=== PATIENT | male | born 1950 | race Caucasian/White ===

== ENCOUNTER 2018-08-28 13:52 | Outpatient (REF) | payer MEDICARE, SELFPAY ==
[2018-08-28 22:29] LABS: Anion Gap 8.9 mmol/L (3-11); BUN 20 mg/dL (7-18); CO2 31.1 mmol/L (21.0-32.0); Calcium 9.1 mg/dL (8.5-10.1); Chloride 101 mmol/L (98-107); Glucose 123 mg/dL (70-100); Potassium 4.1 mmol/L (3.5-5.1); Sodium 141 mmol/L (136-145)
[2018-08-30 10:36] LABS: Hepatitis C Ab w Rflx HCV PCR Negative (NEGAT)
== END 2018-08-28 14:12 ==
LOC: NCHCN 13:52
PROVIDERS: PCP Internal Medicine; Visit Provider Internal Medicine
DX: I10 Essential (primary) hypertension (principal); I48.2 Chronic atrial fibrillation; Z79.01 Long term (current) use of anticoagulants; I50.9 Heart failure, unspecified; Z11.59 Encounter for screening for other viral diseases
CPT/HCPCS: 80048; 86803

== ENCOUNTER → 2019-05-03 13:08 | Outpatient (BNVA) | payer MEDICARE, SELFPAY | PROVIDERS: PCP Internal Medicine; Referring Provider Internal Medicine; Visit Provider Physical Therapy Assistant | DX: R69 Illness, unspecified (principal) | CPT/HCPCS: 99213 ==

== ENCOUNTER 2019-05-03 14:16 | Outpatient (CLI) | payer MEDICARE, SELFPAY ==
[2019-05-03 14:44] LABS: Abs Immature Grans 0.02 k/cumm (0.0-0.09); Absolute Basophil Count 0.03 k/cumm (0.0-0.2); Absolute Eosinophil Count 0.18 k/cumm (0.0-0.7); Absolute Lymphocyte Count 2.06 k/cumm (1.2-3.4); Absolute Monocyte Count 0.76 k/cumm (0.11-0.7); Absolute Neutrophil Count 3.88 k/cumm (1.2-6.7); Basophils % 0.4; Eosinophils % 2.6; HCT 45.3 % (40.0-50.0); HGB 15.7 g/dL (13.5-17.5); Immature Grans % 0.3; Lymphocytes % 29.7; Mean Corp. HGB Concentration 34.7 g/dL (32.0-36.0); Mean Corpuscular Hemoglobin 32.6 pg (27.0-33.0); Mean Platelet Volume 10.6 fL (8.0-11.0); Platelet Count 249 x1000/uL (130-400); RBC 4.82 m/cumm (4.50-6.00); RBC Distribution Width 12.4 % (11.8-14.1); White Blood Cell Count 6.93 k/cumm (4.4-10.8)
[2019-05-03 14:55] LABS: CREATININE 0.92 mg/dL (0.70-1.30)
[2019-05-03 15:03] LABS: C-Reactive Protein < 0.05 mg/dL (0.0-0.3)
[2019-05-03 15:34] LABS: ESR 10 mm/hr (1-20)
== END 2019-05-03 14:36 ==
PROVIDERS: Physical Therapy Assistant; PCP Internal Medicine; Visit Provider Surgery
DX: L02.214 Cutaneous abscess of groin (principal)
CPT/HCPCS: 36415; 85652; 97597; 99213; 82565; 85025; 86140; 87070; 87205

== ENCOUNTER 2019-05-09 01:16 | Outpatient (CLI) | payer MEDICARE, SELFPAY ==
--- NOTE | 2019-05-09 10:32 | DI.CT_ITS ---
SYMPTOM/DIAGNOSIS: LT INGUINAL ABSCESS, S/P HERNIA REPAIR, L02.[address]: CT examination of the abdomen and pelvis was performed with oral contrast only. The patient refused IV contrast. Images obtained through the lung bases are unremarkable. Liver and spleen have a normal noncontrast appearance. Gallbladder and bile ducts are CT normal. Adrenals appear unremarkable bilaterally. There appear to be bilateral renal cysts. There are bilateral renal non obstructing calcifications which appear to be mostly vascular. Urinary bladder has a thickened wall raising the possibility of cystitis or chronic bladder outlet obstruction. There is colonic diverticulosis without diverticulitis. There is a right inguinal hernia which contains fat and the appendix. No evidence of appendiceal inflammation at this time. No significant left inguinal hernia is seen. No abscess identified. No evidence of bowel obstruction. Abdominal aorta is of normal diameter. CONCLUSION: Small right inguinal hernia which contains fat and a non inflamed appendix. No inguinal abscess is seen. No left inguinal hernia.
[2019-05-09] MEDS: Omnipaque 350 MG/ML 50 ML BTL IJ (10:36)
[2019-05-09] MEDS: Breeza Beverage 473 ML BTL PO ×2 (10:37)
== END 2019-05-09 01:36 ==
PROVIDERS: PCP Internal Medicine; Visit Provider Physical Therapy Assistant
DX: L02.214 Cutaneous abscess of groin (principal); Z98.890 Other specified postprocedural states; K40.90 Unilateral inguinal hernia, without obstruction or gangrene, not specified as recurrent; K57.30 Diverticulosis of large intestine without perforation or abscess without bleeding
CPT/HCPCS: 74176; Q9967

== ENCOUNTER → 2019-05-17 11:08 | Outpatient (BNVA) | payer MEDICARE, SELFPAY | PROVIDERS: PCP Internal Medicine; Referring Provider Internal Medicine; Visit Provider Physical Therapy Assistant | DX: Z51.89 Encounter for other specified aftercare (principal); I11.0 Hypertensive heart disease with heart failure; I50.9 Heart failure, unspecified | CPT/HCPCS: 99212; 99213 ==

== ENCOUNTER → 2019-05-31 11:04 | Outpatient (BNVA) | payer MEDICARE, SELFPAY | PROVIDERS: PCP Internal Medicine; Referring Provider Internal Medicine; Visit Provider Physical Therapy Assistant | DX: L02.214 Cutaneous abscess of groin (principal); Z51.89 Encounter for other specified aftercare; I10 Essential (primary) hypertension | CPT/HCPCS: 99212; 99213 ==

== ENCOUNTER → 2019-08-08 13:18 | Outpatient (BNVA) | payer MEDICARE, SELFPAY | PROVIDERS: PCP Internal Medicine; Referring Provider Internal Medicine; Visit Provider Surgery | DX: K40.90 Unilateral inguinal hernia, without obstruction or gangrene, not specified as recurrent (principal); I25.5 Ischemic cardiomyopathy; I42.0 Dilated cardiomyopathy; Z87.891 Personal history of nicotine dependence; I48.91 Unspecified atrial fibrillation; Z79.01 Long term (current) use of anticoagulants; N40.0 Benign prostatic hyperplasia without lower urinary tract symptoms; I34.0 Nonrheumatic mitral (valve) insufficiency; I10 Essential (primary) hypertension | CPT/HCPCS: 99213 ==

== ENCOUNTER 2019-08-23 01:41 | Outpatient (CLI) | payer MEDICARE, SELFPAY ==
--- NOTE | 2019-08-23 07:30 | DI.US_ITS ---
APPROVED REPORT EXAM: Comprehensive 2D, Doppler, and color-flow Echocardiogram Patient Location: Out-Patient Demand Generation Manager: Rohini Diaz [facility] ([place]) Rhythm: Atrial Fibrillation Tachycaria Indications: ischemic Cardiomyopathy. k40.90, TIA G45.9, smoker, right inguinal hernia k40.90 Conclusion Left Ventricle : The left ventricle is normal. The posterior wall thickness is mildly increased. The septal thickness is mildly increased. The left ventricular diastolic function is normal. Left ventric ular systolic function is mildly decreased. There is global hypokinesis of the left ventricle. LVEF i s estimated to be 45-50%. Right Ventricle : Right ventricle is dilated. Right ventricle is low normal in function. Atria : Left atrium is severely dilated. Right atrium is severely dilated. Aortic Valve : Aortic valve is thickened but has adequate excursion. Trivial aortic regurgitation. Th ere is no aortic valvular stenosis. Mitral Valve : Mitral valve leaflets are thickened and myxomatous. No evidence of mitral valve stenos is. Moderate to severe mitral regurgitation (RF 39%) Tricuspid Valve : Tricuspid valve leaflets are thickened and myxomatous, but open well. Moderate tric uspid regurgitation. Great Vessels : IVC is normal mildly dilated and collapses >50% with inspiration. RVSP is 29-33 mmHg . Compared to prior echocardiogram dated 08/29/2013, there is no significant change. Wall motion Left Ventricle The left ventricle is normal. Left ventricular systolic function is mildly decreased. The posterior w all thickness is mildly increased. The septal thickness is mildly increased. There is global hypokine sis of the left ventricle. The left ventricular diastolic function is normal. LVEF is estimated to be 45-50%. Right Ventricle Right ventricle is dilated. Right ventricle is low normal in function. Atria Left atrium is severely dilated. Right atrium is severely dilated. Aortic Valve Aortic valve is thickened but has adequate excursion. There is no aortic valvular stenosis. Trivial a ortic regurgitation. Mitral Valve Mitral valve leaflets are thickened and myxomatous. No evidence of mitral valve stenosis. Moderate to severe mitral regurgitation (RF 39%) Tricuspid Valve Tricuspid valve leaflets are thickened and myxomatous, but open well. Moderate tricuspid regurgitatio n. Pulmonic Valve Pulmonic valve leaflets are thickened. Mild to moderate pulmonic regurgitation. Great Vessels The aortic root size is normal. The ascending aorta size is normal. IVC is normal mildly dilated and collapses >50% with inspiration. RVSP is 29-33 mmHg. Pericardium There is no pericardial effusion. 2D Dimensions IVSd 1.30 cm M: 0.6-1.2 LV EDV A2C 100.70 mL PWd 1.15 cm M: 0.6 - 1.2 LV EDV A4C 127.30 mL LVDd 5.00 cm M: 4.2 - 5.8 LA Volume Index A2C 56.85 mL/m2 LVDs 3.65 cm M: 2.5 - 4.0 LA Volume Index A4C 72.57 mL/m2 Aortic Root 3.35 cm M: 3.1 - 3.7 LA Volume Index Biplane 64.91 mL/m2 RA Area A4C 29.92 cm2 LA Area A4C 35.89 cm2 LVOT 2.05 cm (M/F) 1.5-2.5 LA Area A2C 31.44 cm2 Ascending Aorta 3.18 cm M: 2.6 - 3.4 EF AP4 48.31 % LVEF (Teich) 52.58 % EF AP2 40.32 % LVEF (Moreno's) 41.64 % M: 52 - 72 EF BP 41.64 % LV Volume 84.23 mL M: 62 - 150 LV Volume Index 41.49 mL/m2 M: 34 - 74 FS 27.10 % LV Diastology MED E' 0.07 (>0.07 m/s) LV E/e MED 13.95 (<14) LAT E' 0.15 (>0.1 m/s) LV E/e LAT 6.45 (<14) Pulm Vein s 0.19 m/s PV S/D Ratio 0.38 Pulm Vein d 0.50 m/s Aortic Valve LVOT Area 3.40 cm2 LVOT Peak Jacobo. 0.70 m/s LVOT Mean Jacobo. 0.54 m/s LVOT Peak Gr. 2.20 mmHg DIONY Vmax Index 1.07 cm2/m2 LVOT Mean Gr. 1.25 mmHg LVOT VTI 0.10 m DIONY Mean Jacobo. Index 1.09 cm2/m2 AoV Peak Jacobo. 1.17 (0.5-1.3 m/s) AoV Mean Jacobo. 0.82 m/s AO Peak GR. 5.44 mmHg AO Mean GR. 2.94 (<5 mmHg) VTI Ratio 0.67 DIONY (VTI) 2.26 (2.5-4.5 cm2) DIONY (VTI) Index 1.11 cm/m2 Mitral Valve MV E Max Jacobo. 0.96 (0.4-1.3 m/s) MV Decel. Time 115.50 (160-240 msec) MV Regurg Volume 30.47 mL MV PHT 33.51 msec MV RF 38.75 % MVA PHT 6.55 cm2 Pulmonary Valve PV Peak Velocity 0.84 (0.5-1.5 m/s) Tricuspid Valve TR P. Velocity 2.70 m/s TV Regurg Vmax 2.70 m/s RAP Estimate 8.00 mmHg RVSP 37.00 mmHg TR P. Gradient 29.05 mmHg
== END 2019-08-23 02:01 ==
PROVIDERS: PCP Internal Medicine; Visit Provider Surgery
DX: I25.5 Ischemic cardiomyopathy (principal); I48.20 Chronic atrial fibrillation, unspecified; R00.0 Tachycardia, unspecified; I50.1 Left ventricular failure, unspecified; I34.0 Nonrheumatic mitral (valve) insufficiency; I51.7 Cardiomegaly; F17.210 Nicotine dependence, cigarettes, uncomplicated; G45.9 Transient cerebral ischemic attack, unspecified
CPT/HCPCS: 93306

== ENCOUNTER 2019-08-31 16:18 | Outpatient (REF) | payer MEDICARE, SELFPAY ==
[2019-08-31 21:00] LABS: Anion Gap 8.9 mmol/L (3-11); BUN 19 mg/dL (7-18); CO2 27.1 mmol/L (21.0-32.0); Calcium 9.1 mg/dL (8.5-10.1); Chloride 105 mmol/L (98-107); Glucose 98 mg/dL (74-106); Potassium 4.2 mmol/L (3.5-5.1); Sodium 141 mmol/L (136-145)
== END 2019-08-31 16:38 ==
LOC: NCHCN 16:18
PROVIDERS: PCP Internal Medicine; Visit Provider Internal Medicine
DX: I10 Essential (primary) hypertension (principal)
CPT/HCPCS: 80048

== ENCOUNTER 2019-09-10 06:01 | Day surgery (SDC) | payer MEDICARE, SELFPAY ==
--- NOTE | 2019-09-09 17:14 | HPE_ITS ---
Date of service: 09/10/19 Time of Service: 07:30 Assessment and Plan Assessment and plan (1) Ischemic dilated cardiomyopathy: Status: Acute Assessment and plan: Patient Name: STEFAN TONY #: [id number]: CHRISTIN Ordering Provider: Daphne Ennis #: [id number]: REG CLI Primary Care Provider: David Salgado M.D.Date of Exam: 08/23/19Sex: M Admission Date: 08/23/19 : 1950 Age: 69 Exam(s) a US:US echocardiogram APPROVED REPORT EXAM: Comprehensive 2D, Doppler, and color-flow Echocardiogram Patient Location: Out-Patient Metal Baler[facility] Rhythm: Atrial Fibrillation Tachycaria Indications: ischemic Cardiomyopathy. k40.90, TIA G45.9, smoker, right inguinal hernia k40.90 Conclusion Left Ventricle : The left ventricle is normal. The posterior wall thickness is mildly increased. The septal thickness is mildly increased. The left ventricular diastolic function is normal. Left ventricular systolic function is mildly decreased. There is global hypokinesis of the left ventricle. LVEF is estimated to be 45-50%. Right Ventricle : Right ventricle is dilated. Right ventricle is low normal in function. Atria : Left atrium is severely dilated. Right atrium is severely dilated. Aortic Valve : Aortic valve is thickened but has adequate excursion. Trivial aortic regurgitation. There is no aortic valvular stenosis. Mitral Valve : Mitral valve leaflets are thickened and myxomatous. No evidence of mitral valve stenosis. Moderate to severe mitral regurgitation (RF 39%) Tricuspid Valve : Tricuspid valve leaflets are thickened and myxomatous, but open well. Moderate tricuspid regurgitation. Great Vessels : IVC is normal mildly dilated and collapses >50% with inspiration. RVSP is 29-33 mmHg. Compared to prior echocardiogram dated 08/29/2013, there is no significant change. (2) Mitral valve insufficiency: Status: Chronic (3) HTN (hypertension): Status: Chronic (4) Right inguinal hernia: Status: Acute Assessment and plan: Risks of the surgery include but are not limited to: Bleeding/infection/pneumonia/damage to blood vessels or bladder or bowels/blood clots or PE/chronic pain/urinary retention/chronic numbness/reoccurrence/reaction to mesh requiring removal/damage to testicle or sterility/complications of anesthesia. The procedure will be done with abx and under sterile conditions. The pt requires a ride home from surgery and someone to stay with the pt for 24 hrs after anesthesia. No lifting over 5 pounds for 2 weeks after surgery. History of Present Illness Consults Consult date: 09/10/19 Narrative: Pt seen adn examined. inr 1.1. no changes in health status or medications. had physical on 08/31, did review these results. has developed a dry cough. no fever/chills. non productive. no sore throat. no headaches. No CP or SOB. no productive cough. no dysuria. no leg pain or swelling. we are diong the RIght side today. no changes in meds. stable for procedure site is marked reviewed risk adn benefits of procedure. from H&P: pt has a very lg R ing hernia. He wears biking shorts to keep it in place. He is very active. 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 He does occ get SOB and have to sit if he walks far. He says he has a bad heart and had some TIA's. He is on coumadin for TIA. He used to be a heavy tobacco smoker. Now just THC. He used to see cards regularly- but his cards retired. right inguinal 4-6 months heavy lifting reports other (no chronic cough. no straining to urinate. Does have some nocturia and dr); denies constipation, diarrhea or nausea Addenda The pt did have a recent echo w/ EF 45-50% b/l atrial dilation. severe mitral regurg. I did d/w anethesia. they would agree to do the case under spinal. He should be off anti-caog x 1 wk Addendum dictated by Daphne Ennis DO 08/24/19 6817 <Electronically signed by Daphne Ennis DO> 08/24/19 [id number] Transcribed By: Daphne Ennis 08/24/19 5013 Cosigned by Assessment & Plan (1) Hernia: (2) Right inguinal hernia: d/w pt open repiar w/ mesh. He did fine last repair. Prob should do under spinal. Will recheck an echo preOp. will need to be off coumadin. There is a risk of stroke during this period- but it is low. he also has some BPH and could benefit from being on Flomax preOp. I discussed the nature of inguinal hernias with the pt. I discussed the surgery in detail and the complications related to the surgery and the anesthesia. Pt. understands this, all questions were answered to the patient satisfaction and they signed the consent for surgery. Patient was given an educational booklet. Risks of the surgery include but are not limited to: Bleeding/infection/pneumonia/damage to blood vessels or bladder or bowels/blood clots or PE/chronic pain/urinary retention/chronic numbness/reoccurrence/reaction to mesh requiring removal/damage to testicle or sterility/complications of anesthesia. The procedure will be done with abx and under sterile conditions. The pt requires a ride home from surgery and someone to stay with the pt for 24 hrs after anesthesia. No lifting over 5 pounds for 2 weeks after surgery. He was done under local/MAC in 2016 w/ last hernia. Review of Systems All systems reviewed & are unremarkable except as noted in HPI and below [facility] Medical History A-fib (Chronic) Abscess of left groin (Acute) 04/30/19 Per Brigette Wild, [facility], patient wiht left groin abscess that measured 2.5x1.5 with 1cm white top. Afib (Chronic) BPH (benign prostatic hyperplasia) (Chronic) Chronic anticoagulation (Acute) for afib Congestive heart failure (Chronic) Glaucoma (Chronic) History of cardioembolic stroke (Acute) HTN (hypertension) (Chronic) Ischemic dilated cardiomyopathy (Acute) Mitral valve insufficiency (Chronic) Moderate->Severe on his 08/31/19 echo Right inguinal hernia (Acute) TIA (transient ischemic attack) (Acute) Visual field defect (Acute) Social History Smoking/Tobacco Use Status: Former Tobacco Use Alcohol Intake: current Alcohol Intake frequency: holidays/special occasions only Alcohol type: beer and wine Drug use: Daily Substance use type: marijuana Do you feel safe at home: Yes Meds Home Medications and Allergies Home Medications Medication Instructions Recorded Confirmed Type furosemide 20 mg PO DAILY tab-cap 04/18/15 09/10/19 History metoprolol succinate 200 mg PO DAILY tab-cap 04/18/15 09/10/19 History lisinopril 10 mg tablet 10 mg PO HS 05/03/19 09/10/19 History warfarin 6 mg tablet 6 mg PO DAILY tab 05/03/19 09/10/19 History Allergies Allergy/AdvReac Type Severity Reaction Status Date / Time No Known Allergies Allergy Verified 09/10/19 06:27 Exam Const General: cooperative, healthy appearing, comfortable, no acute distress, well developed and well groomed Nutritional Appearance: average body habitus and well nourished Orientation: alert, awake and oriented x3 HENMT Head: normal to inspection, normocephalic and atraumatic Ears: hearing grossly normal bilaterally and external ears normal General nose exam: external nose normal Face and sinus: normal facial exam and sinuses nontender Mouth: oral mucosae normal, lip normal, tongue normal and moist mucous membranes Teeth and gingiva: dentition normal Eyes General: appearance normal, both eyes and all related structures Conjunctivae: conjunctivae normal Sclera: sclerae normal Pupils: PERRL Neck Neck: normal visual inspection and full ROM Chest Chest: normal inspection of the chest Resp Effort & Inspection: normal respiratory effort, able to speak in complete sentences, no cough, no nasal flaring, not tachypneic and no use of accessory muscles Auscultation: clear to auscultation bilaterally, no rales, no rhonchi and no wheezes Cardio Jugular venous pressure: no JVD Rate: regular rate Rhythm: regular rhythm GI Inspection: normal to inspection, no edema and non-distended Palpation: soft, no masses, nontender and No ascites Auscultation: normal bowel sounds Other: lg right ing hernia Skin General skin exam: no rashes or lesions noted Trauma: no lacerations or abrasions Neuro General: alert, oriented x3, oriented, gait normal, moves all extremities, no focal motor deficits and CN's II-XI intact bilaterally Cognition: normal cognition Speech: speech normal Gait: normal gait Motor: muscle tone normal throughout Extrem General: normal to inspection, full ROM and no clubbing, cyanosis or edema Psych Appearance: grossly normal and well kempt Mental Status: mental status grossly normal Speech and Movement: speech and movement normal Affect: normal affect
[2019-09-10] VITALS (7 sets, daily range): BP systolic 96–147; BP diastolic 70–100; PULSE 81–103; RESP 16–26; TEMP 36.3–36.6; O2SAT 97–100
[2019-09-10] MEDS: Lactated Ringers 1,000 ML 80 ML IV (06:58)
[2019-09-10] MEDS: Acetaminophen 500 MG TAB 1000 MG PO (07:00)
[2019-09-10] MEDS: Gabapentin 300 MG CAP PO (07:00)
[2019-09-10 07:12] LABS: INR 1.1 (0.9-1.1); Prothrombin Time 10.7 sec (9.3-11.0)
[2019-09-10] MEDS: Bupivacaine 0.25% Pres-Free 30 ML VIAL (08:00)
[2019-09-10] MEDS: ceFAZolin 2 GM/50 ML BAG IVPB (08:05)
[2019-09-10] MEDS: Bupivacaine LIPOSOME/PF 133 MG/10 ML VIAL IJ ×2 (08:45→08:51)
--- NOTE | 2019-09-10 09:09 | ROE_ITS ---
Date of service: 09/10/19 Time of Service: 09:09 Operative Note Operative Note DATE OF PROCEDURE: 09/10/19 PRE-OP DIAGNOSIS: right inguinal hernia POST-OP DIAGNOSIS: other (right direct inguinal hernia and lg cord lipoma (3)) PROCEDURE: open repair w/ mesh SURGEON: Daphne Guzman RETAIL STORE ASSISTANT: Lisa Ferrera ANESTHESIA: MAC, local and spinal ESTIMATED BLOOD LOSS: 5 PATHOLOGY: none sent Patient was transported to: same day Implants: mesh- se Rn's notes Indications: pain Procedure Description: PREOPERATIVE DIAGNOSIS: Right inguinal hernia. POSTOPERATIVE DIAGNOSIS: Large right direct inguinal hernia. PROCEDURE: Right open ingiunal hernia repair with/mesh, direct. SURGEON: Daphne Guzman, ANESTHESIA: General. ESTIMATED BLOOD LOSS: Less than 5 mL. COMPLICATIONS: The patient tolerated the procedure well without complications. INDICATIONS: regarding symptomatic right inguinal hernia that has failed outpatient conservative medical management and he is here today for repair. Informed consent was obtained, explaining risks and benefits of the procedure including but not limited to bleeding, infection, pneumonia, blood clots, chronic pain, chronic numbness, damage to testicle resulting in removal, recurrence, reaction to Mesh necessitating removal, and other unforetold complications and complications of anesthesia. The patient is marked in preop. DESCRIPTION OF PROCEDURE: was brought to the operative room suite. Anesthesia was administered per the Department of Anesthesia. The patient was prepped and draped in the usual sterile fashion using ChloraPrep scrub solution. Pause for the cause was done. He did receive preop IV antibiotics, 30 mL of 1% buffered lidocaine was used for local anesthetization. A #12 blade was used to make an incision over the external ring. Electrocautery used to provide hemostasis and dissect down to the fascia. The fascia was pretty much obliterated and there was nothing to open. The cord is elevated. The nerve was not identified. There are two very large cord lipomas. These are dissected off and cautery is used to provide hemostasis. A Sadie drain was placed around the cord to assist in mobilization. The cord was explored. There was is advised sac adhered to the cord. This is teased off the cord using a combination of blunt dissection and electrocautery to provide hemostasis. Is dissected free from the cord and inverted and passed up through the internal ring into the abdomen. A extra- large mesh was then inserted and oversewn using 2-0 Vicryl. The sac is elevavated and inverted. The patch was then placed on the floor and sewn in using 2-0 Vicryl sewn into the pubic tubercle and the shelving portions of the inguinal ligament. There was really no external oblique to really reapproximate. Some is identified and dissected off and brought around the very superior portion of the cord and oversewn again with 2-0 Vicryl. The wound was copiously irrigated. There was no bleeding noted. The drain was placed. All structures are returned to normal anatomical position. Deep tissue was approximated with 3-0 Vicryl and skin was approximated with 4-0 Monocryl in a running subcuticular fashion. Steri tapes and sterile dressings are applied. The patient tolerated the procedure without complications to recovery in stable condition. DAPHNE GUZMAN, DO
--- NOTE | 2019-09-10 09:13 | W.PM.DSUDISC ---
Discharge Plan Disposition Patient Disposition: HOME Condition: Good Discharge Details Reason For Visit: right inguinal hernia reapir Attending Provider: Daphne Ennis Primary Care Provider: David Salgado Home Meds and New Rx's Prescriptions: New oxycodone 5 mg tablet 5 mg PO Q4H PRN (Reason: pain) Qty: 10 RF: 0 bisacodyl [Dulcolax (bisacodyl)] 5 mg tablet,delayed release (DR/EC) 5 mg PO QD-TID 21 Days Qty: 50 RF: 0 Continued lisinopril 10 mg tablet 10 mg PO HS RF: 0 metoprolol succinate 200 MG tablet extended release 24 hr 200 mg PO DAILY RF: 0 furosemide 20 MG tablet 20 mg PO DAILY RF: 0 Discontinued warfarin 6 mg tablet 6 mg PO DAILY RF: 0 Discharge Instructions Additional Instructions: Dr. Ennis HERNIA REPAIR ? POSTOPERATIVE INSTRUCTIONS ? Laparoscopic mesh surgery for hernia repair allows the patient to return to normal activities at an early date. Patients who have this type of surgery can usually be expected to return to work within two weeks and have minimal amounts of discomfort. ? ACTIVITY: The day of surgery should be spent resting. However, you can be up for short periods of time, I.E., going to the bathroom or kitchen. Avoid lifting or straining. On the day following surgery, you can be up and about as desired. ? LIFTING: Restrict your lifting to no more than five (5) pounds for the first week following surgery. ? DIET: There are no dietary restrictions following surgery. However, you may want to start with small amounts of liquids to avoid nausea the day of surgery. ? INCISION CARE: You will notice strips of tape covering the wound ? DO NOT REMOVE THESE STRIPS - they help the wound to heal. After 24 hours you may shower. The dressing may be replaced for comfort, but is not necessary. An ice bag may be applied to the incision for 72 hours following surgery. ? SIGNS OF INFECTION: It is not unusual to have some black and blue discoloration of the skin around the incision, but also scrotum and penis. It will slowly disappear. If you have any increased redness, drainage, fever (above 100 degrees), please contact your doctor for an examination. ? DISCOMFORT: You may expect to have some mild discomfort at the incision sight. If severe pain develops you should contact your doctor for further instructions. ? URINATION: Patients who have surgery occasionally have problems urinating. If you experience problems and are not able to urinate within 6 hours following your surgery, please call your doctor immediately or go to your nearest Emergency Room for evaluation. ? DRIVING: NO driving for five (5) days after surgery ? MEDICATIONS: Alternate Tylenol 1000mg by mouth every 8hours and Ibuprofen 600mg every 6hours. Take the Tylenol and ibuprofen continuously for the first 72hrs- not just when you have pain. Use the oxycodone for severe breakthrough pain. Use ice 20 minutes off/on continuously for the first 72hours. If you are taking narcotic pain medication, follow the instructions on the label and do not drive. Pain medications can make you very constipated. Make sure you are moving your bowels daily. If not, take Dulcolax, Miralax, milk of magnesia or magnesium citrate. ? REPORT: Unusual swelling, severe pain, unresolved nausea, signs of infection, or difficulty in urination to your surgeon. Follow up in clinic with Dr. Ennis in 1-2 weeks. Please call for appointment: [phone] Do not resume coumadin at this time. Will resume after your first postOp appt Discharge Orders Discharge Orders: Discharge Order (Routine); Ordered 09/10/19 Ordered By: Daphne Ennis DS: Diagnosis Discharge Diagnosis (1) Ischemic dilated cardiomyopathy: Status: Acute (2) Mitral valve insufficiency: Status: Chronic (3) HTN (hypertension): Status: Chronic (4) Right inguinal hernia: Status: Acute
[2019-09-10] MEDS: Tamsulosin 0.4 MG CAPCR PO (10:03)
== END 2019-09-10 11:45 | disposition home or self-care (01) ==
PROVIDERS: Nurse Anesthetist, Certified Registered; PCP Internal Medicine; Visit Provider Surgery
PROC: (CPT 49505; principal; 2019-09-10 07:30)
DX: K40.90 Unilateral inguinal hernia, without obstruction or gangrene, not specified as recurrent (principal); I10 Essential (primary) hypertension; G89.18 Other acute postprocedural pain
CPT/HCPCS: 49505; 36415; 76942; NC; 85610; C1781; J0690; J2250; J2405

== ENCOUNTER → 2019-09-21 12:37 | Outpatient (BNVA) | payer MEDICARE, SELFPAY | PROVIDERS: PCP Internal Medicine; Referring Provider Internal Medicine; Visit Provider Surgery | DX: Z48.815 Encounter for surgical aftercare following surgery on the digestive system (principal); K40.90 Unilateral inguinal hernia, without obstruction or gangrene, not specified as recurrent ==

== ENCOUNTER → 2019-10-05 09:25 | Outpatient (BNVA) | payer MEDICARE, SELFPAY | PROVIDERS: PCP Internal Medicine; Referring Provider Internal Medicine; Visit Provider Surgery | DX: K40.90 Unilateral inguinal hernia, without obstruction or gangrene, not specified as recurrent (principal) ==

== ENCOUNTER → 2020-04-09 14:23 | Outpatient (BNVA) | payer OTHER, SELFPAY | PROVIDERS: PCP Internal Medicine; Referring Provider Internal Medicine; Visit Provider Surgery | DX: T81.89XA Other complications of procedures, not elsewhere classified, initial encounter (principal); Z51.89 Encounter for other specified aftercare | CPT/HCPCS: 99211; 99212 ==

== ENCOUNTER 2020-09-02 17:36 | Outpatient (REF) | payer OTHER, SELFPAY ==
[2020-09-02 21:40] LABS: Anion Gap 7.7 mmol/L (3-11); BUN 22 mg/dL (7-18); CO2 27.3 mmol/L (21.0-32.0); CREATININE 0.93 mg/dL (0.70-1.30); Calcium 9.2 mg/dL (8.5-10.1); Chloride 105 mmol/L (98-107); Glucose 131 mg/dL (74-106); Potassium 4.1 mmol/L (3.5-5.1); Sodium 140 mmol/L (136-145)
== END 2020-09-02 17:56 ==
LOC: NCHCN 17:36
PROVIDERS: PCP Internal Medicine; Visit Provider Internal Medicine
DX: I11.0 Hypertensive heart disease with heart failure (principal); I48.21 Permanent atrial fibrillation; I50.9 Heart failure, unspecified; N40.0 Benign prostatic hyperplasia without lower urinary tract symptoms
CPT/HCPCS: 80048; 84153

== ENCOUNTER 2021-09-04 14:53 | Outpatient (REF) | payer OTHER, SELFPAY ==
[2021-09-04 14:48] LABS: HCT 45.8 % (40.0-50.0); HGB 15.2 g/dL (13.5-17.5); MCH 32.3 pg (27.0-33.0); MCHC 33.2 % (32.0-36.0); MCV 97.2 fL (80-95); MPV 11.9 fL (8.0-11.0); Platelet Count 236 10^3/uL (130-400); RBC 4.71 10^6/uL (4.36-5.78); RDW 11.9 % (11.8-14.1); RDW-SD 43.6 fL; WBC 7.47 10^3/uL (4.4-10.8)
[2021-09-04 14:53] LABS: Anion Gap 3.1 mmol/L (3-11); BUN 14 mg/dL (7-18); CO2 32.9 mmol/L (21.0-32.0); CREATININE 0.9 mg/dL (0.70-1.30); Calcium 9.5 mg/dL (8.5-10.1); Chloride 103 mmol/L (98-107); Glucose 102 mg/dL (74-106); Potassium 4.5 mmol/L (3.5-5.1); Sodium 139 mmol/L (136-145)
[2021-09-04 15:07] LABS: Hemoglobin A1C 5.8 % (<5.7)
== END 2021-09-04 14:54 | disposition home or self-care (01) ==
LOC: NCHCN 14:53
PROVIDERS: PCP Internal Medicine; Visit Provider Family Medicine
DX: I10 Essential (primary) hypertension (principal); R63.4 Abnormal weight loss; R73.09 Other abnormal glucose; I50.9 Heart failure, unspecified
CPT/HCPCS: 80048; 85027; 83036

== ENCOUNTER 2022-08-30 13:22 | Outpatient (REF) | payer MEDICARE, SELFPAY ==
[2022-08-30 15:00] LABS: HCT 43.9 % (40.0-50.0); HGB 14.8 g/dL (13.5-17.5); MCH 32.4 pg (27.0-33.0); MCHC 33.7 % (32.0-36.0); MCV 96 fL (80-95); MPV 11.4 fL (8.0-11.0); Platelet Count 270 10^3/uL (130-400); RBC 4.57 10^6/uL (4.36-5.78); RDW-SD 42.9 fL; WBC 7.13 10^3/uL (4.4-10.8)
[2022-08-30 15:18] LABS: ALT 25 U/L (16-63); AST 18 U/L (15-37); Alkaline Phosphatase 68 U/L (46-116); Anion Gap 6.1 mmol/L (3-11); BUN 19 mg/dL (7-18); Bilirubin, Total 0.7 mg/dL (0.2-1.0); CO2 31.9 mmol/L (21.0-32.0); CREATININE 0.9 mg/dL (0.70-1.30); Calcium 9.5 mg/dL (8.5-10.1); Chloride 102 mmol/L (98-107); Estimated GFR 90.18 (mL/min/1.73m2); Glucose 114 mg/dL (74-106); Potassium 3.8 mmol/L (3.5-5.1); Sodium 140 mmol/L (136-145); Total Protein 7.8 g/dL (6.4-8.2)
== END 2022-08-30 13:23 | disposition home or self-care (01) ==
LOC: NCHCN 13:22
PROVIDERS: PCP Internal Medicine; Visit Provider Family Medicine
DX: I10 Essential (primary) hypertension (principal); I50.9 Heart failure, unspecified; I48.21 Permanent atrial fibrillation; Z79.01 Long term (current) use of anticoagulants
CPT/HCPCS: 80053; 85027; 85610

== ENCOUNTER 2022-10-27 02:49 | Outpatient (CLI) | payer MEDICARE, SELFPAY ==
--- NOTE | 2022-10-27 10:30 | DI.US_ITS ---
APPROVED REPORT EXAM: Comprehensive 2D, Doppler, and color-flow Echocardiogram Patient Location: Out-Patient Industrial Relations Officer: Chelsey Bach RDCS (AE) Indications: Congestive heart failure Other Information Study Quality: Adequate Conclusion Normal left ventricular wall thickness and chamber size. Estimated systolic function is mildly reduc ed with an EF of 45 to 50%. There is an apical wall motion abnormality Borderline dilated right ventricle The left atrium is severely dilated. The right atrium is moderately dilated Trileaflet aortic valve with trace regurgitation Normal mitral valve with mild to moderate regurgitation Tricuspid valve with moderate to severe eccentric regurgitation. Estimated right ventricular systoli c pressure is 39 mmHg Patient was in atrial fibrillation throughout the study, controlled rate Wall motion Left Ventricle The left ventricle is normal size. Left ventricular systolic function is mildly reduced. There is nor mal left ventricular wall thickness. There is an apical wall motion abnormality There is no ventricul ar septal defect visualized. LVEF is 45-50% Right Ventricle Right ventricle is borderline dilated. Right ventricular systolic function is grossly normal. The RVS P is 39.0_ mmHg. Atria Left atrium is severely dilated. Right atrium is moderately dilated. The interatrial septum is intact with no evidence for an atrial septal defect. Aortic Valve The aortic valve is normal in structure. Aortic valve is trileaflet. There is no aortic valvular sten osis. Trace aortic regurgitation. Mitral Valve The mitral valve is normal in structure. No evidence of mitral valve stenosis. Mild to moderate liz l regurgitation. Mitral regurgitation jet is eccentrically directed. Tricuspid Valve The tricuspid valve is normal in structure. There is no tricuspid valve stenosis. Moderate to severe tricuspid regurgitation. Tricuspid regurgitation jet is eccentrically directed. Pulmonic Valve The pulmonary valve is normal in structure. There is no pulmonic valvular stenosis. Mild pulmonic reg urgitation. Great Vessels The aortic root is normal in size. The ascending aorta is normal in size. Aortic arch is not well vis ualized. IVC is normal in size and collapses >50% with inspiration. Pericardium There is no pericardial effusion. 2D Dimensions IVSD d PLAX 1.12 cm M: 0.6-1.2 LV Vol A2C d MOD 112.0 mL LVPW d PLAX 1.13 cm M: 0.6 - 1.2 LV Vol A4C d MOD 139.4 mL LVID d PLAX 4.97 cm M: 4.2 - 5.8 LA vol/ BSA A2C s A-L 70.8 mL/m2 LVDs 3.75 cm M: 2.5 - 4.0 LA vol/ BSA A4C s A-L 91.3 mL/m2 Ao Root d 3.02 cm M: 3.1 - 3.7 LA Vol/ BSA Biplane s A-L 82.6 mL/m2 RA Area A4C 28.17 cm2 LA Area A4C s MOD 40.68 cm2 RA Vol/ BSA A4C s A-L 53.1 mL/m2 LA Area A2C s MOD 34.88 cm2 Ao Asc Diam d 3.18 cm M: 2.6 - 3.4 LV EF A4C MOD 51.0 % LV EF Teichholz 46.8 % LV EF A2C MOD 51.8 % LVEF (Moreno's) 51.39 % M: 52 - 72 LV EF Biplane MOD 51.4 % LV Volume 97.22 mL M: 62 - 150 SV 66.21 mL LV Volume Index 49.60 mL/m2 M: 34 - 74 SV Index 33.73 mL/m2 LV Vol Biplane MOD 128.8 mL FS 23.50 % M-Mode TAPSE 1.48 cm (M/F) >1.7 LV Diastology MV E' medial 0.076 (>0.07 m/s) MV E Vmax 0.72 (0.4-1.3 m/s) LV E/e MED 9.45 (<14) MV E' lateral 0.169 (>0.1 m/s) LV E/e LAT 4.25 (<14) MV E/E' medial 9.47 MV E/E' lateral 4.27 Aortic Valve LVOT Area 3.38 cm2 AoV Area Vmax 2.46 cm2 LVOT Vmax 0.78 m/s AoV Area/ BSA (Vmax) 1.25 cm2/m2 LVOT Mean Jacobo. 0.53 m/s DIONY Mean Jacobo. 2.12 cm2 LVOT Peak Grad 2.4 mmHg DIONY Mean Jacobo. Index 1.08 cm2/m2 LVOT Mean Grad 1.3 mmHg AR DT 3185 msec LVOT VTI 0.134 m AR PHT 924 msec LVOT Diam s 2.05 cm AoV Vmax 1.08 m/s Velocity Ratio 0.72 AoV Mean Jacobo. 0.84 m/s AoV Peak Grad 4.6 mmHg LVOT SV 45.26 mL AoV Mean Grad 3.0 mmHg AoV VTI 0.231 m AoV Area VTI 1.96 cm2 AoV Area/ BSA (VTI) 1.00 cm/m2 Mitral Valve MV DT 271 (160-240 msec) MR Vmax 4.45 m/s MV PHT 79 msec MR VTI 1.481 m MV Area PHT 2.80 cm2 MR Peak Grad 79.2 mmHg MV VTI 0.142 m MR Mean Grad 58.5 mmHg MV VTI Annulus 0.152 m MV Area VTI 3.41 (4.0-6.0 cm2) Pulmonary Valve PV Vmax 0.83 (0.5-1.5 m/s) RVOT Peak Gr. 0.98 mmHg PV Peak Grad 2.8 mmHg RVOT Mean Gr. 0.50 mmHg PV Mean Grad 1.4 mmHg RVOT VTI 0.096 m PV VTI 0.130 m RVOT Vmax 0.50 m/s Tricuspid Valve TR Peak Grad 35.9 mmHg TR Vmax 3.00 m/s RA Pressure 3.00 mmHg RVSP (TR) 39.0 mmHg
== END 2022-10-27 03:09 ==
LOC: DI 02:50
PROVIDERS: PCP Internal Medicine; Visit Provider Family Medicine
DX: I50.9 Heart failure, unspecified (principal)
CPT/HCPCS: 93306

== ENCOUNTER 2023-03-03 15:58 | Outpatient (REF) | payer MEDICARE, SELFPAY ==
[2023-03-03 14:51] LABS: INR 2.9 (0.9-1.1); Prothrombin Time 29.7 sec (9.3-11.0)
[2023-03-03 15:10] LABS: Anion Gap 10.4 mmol/L (3-11); BUN 16 mg/dL (7-18); CO2 30.6 mmol/L (21.0-32.0); CREATININE 0.9 mg/dL (0.70-1.30); Calcium 9.4 mg/dL (8.5-10.1); Chloride 103 mmol/L (98-107); Estimated GFR 90.18 (mL/min/1.73m2); Glucose 133 mg/dL (74-106); Potassium 4.4 mmol/L (3.5-5.1); Sodium 144 mmol/L (136-145)
[2023-03-03 15:40] LABS: Hemoglobin A1C 5.5 % (<5.7)
== END 2023-03-03 15:59 | disposition home or self-care (01) ==
LOC: NCHCN 15:58
PROVIDERS: PCP Family Medicine; Visit Provider Family Medicine
DX: I10 Essential (primary) hypertension (principal); R73.9 Hyperglycemia, unspecified; I50.9 Heart failure, unspecified; I34.0 Nonrheumatic mitral (valve) insufficiency
CPT/HCPCS: 80048; 83036; 85610

== ENCOUNTER 2023-08-30 16:31 | Outpatient (REF) | payer MEDICARE, SELFPAY ==
[2023-08-30 16:14] LABS: Abs Immature Grans 0.02 10^3/uL (0.0-0.06); Absolute Basophil Count 0.03 10^3/uL (0.0-0.2); Absolute Eosinophil Count 0.07 10^3/uL (0.0-0.7); Absolute Lymphocyte Count 1.46 10^3/uL (1.2-3.4); Absolute Monocyte Count 0.59 10^3/uL (0.1-0.8); Absolute Neutrophil Count 4.35 10^3/uL (1.2-6.7); Basophils % 0.5; Eosinophils % 1.1; HCT 45.4 % (40.0-50.0); HGB 15.4 g/dL (13.5-17.5); Immature Grans % 0.3; Lymphocytes % 22.4; MCH 32.5 pg (27.0-33.0); MCHC 33.9 % (32.0-36.0); MCV 96 fL (80-95); MPV 11.2 fL (8.0-11.0); Neutrophils % 66.7; Platelet Count 234 10^3/uL (130-400); RBC 4.74 10^6/uL (4.36-5.78); RDW-SD 42.9 fL; WBC 6.52 10^3/uL (4.4-10.8)
[2023-08-30 16:25] LABS: ALT 25 U/L (16-63); AST 21 U/L (15-37); Albumin 3.9 g/dL (3.4-5.0); Alkaline Phosphatase 65 U/L (46-116); Anion Gap 5.8 mmol/L (3-11); BUN 23 mg/dL (7-18); Bilirubin, Total 0.7 mg/dL (0.2-1.0); CO2 31.2 mmol/L (21.0-32.0); CREATININE 0.9 mg/dL (0.70-1.30); Calcium 9.4 mg/dL (8.5-10.1); Chloride 102 mmol/L (98-107); Estimated GFR 89.62 (mL/min/1.73m2); Glucose 141 mg/dL (74-106); Potassium 4.1 mmol/L (3.5-5.1); Sodium 139 mmol/L (136-145); Total Protein 7.2 g/dL (6.4-8.2)
[2023-08-30 16:57] LABS: Hemoglobin A1C 5.9 % (<5.7)
== END 2023-08-30 16:32 | disposition home or self-care (01) ==
LOC: NCHCN 16:31
PROVIDERS: PCP Family Medicine; Visit Provider Family Medicine
DX: I10 Essential (primary) hypertension (principal); R73.03 Prediabetes
CPT/HCPCS: 80053; 83036; 85025

== ENCOUNTER 2024-08-30 11:50 | Outpatient (REF) | payer MEDICARE, SELFPAY ==
[2024-08-30 14:35] LABS: Abs Immature Grans 0.02 10^3/uL (0.0-0.06); Absolute Basophil Count 0.05 10^3/uL (0.0-0.2); Absolute Eosinophil Count 0.09 10^3/uL (0.0-0.7); Absolute Lymphocyte Count 1.72 10^3/uL (1.2-3.4); Absolute Monocyte Count 0.65 10^3/uL (0.1-0.8); Absolute Neutrophil Count 3.86 10^3/uL (1.2-6.7); Basophils % 0.8 %; Eosinophils % 1.4 %; HCT 45.8 % (40.0-50.0); HGB 15.6 g/dL (13.5-17.5); Immature Grans % 0.3 %; Lymphocytes % 26.9 %; MCH 32.8 pg (27.0-33.0); MCHC 34.1 % (32.0-36.0); MCV 96 fL (80-95); MPV 11.1 fL (8.0-11.0); Monocytes % 10.2 %; Neutrophils % 60.4 %; Platelet Count 219 10^3/uL (130-400); RBC 4.75 10^6/uL (4.36-5.78); RDW 11.9 % (11.8-14.1); RDW-SD 42.5 fL; WBC 6.39 10^3/uL (4.4-10.8)
[2024-08-30 15:00] LABS: ALT 25 U/L (16-63); AST 25 U/L (15-37); Albumin 4.1 g/dL (3.4-5.0); Alkaline Phosphatase 73 U/L (46-116); Anion Gap 8.1 mmol/L (3-11); BUN 20 mg/dL (7-18); Bilirubin, Total 0.78 mg/dL (0.2-1.0); CO2 28.9 mmol/L (21.0-32.0); CREATININE 0.9 mg/dL (0.70-1.30); Calcium 9.5 mg/dL (8.5-10.1); Chloride 106 mmol/L (98-107); Estimated GFR 89.07 (mL/min/1.73m2); Glucose 97 mg/dL (74-106); Potassium 4.2 mmol/L (3.5-5.1); Sodium 143 mmol/L (136-145); Total Protein 7.6 g/dL (6.4-8.2)
== END 2024-08-30 11:51 | disposition home or self-care (01) ==
LOC: NCHCN 11:50
PROVIDERS: PCP Family Medicine; Visit Provider Family Medicine
DX: I10 Essential (primary) hypertension (principal)
CPT/HCPCS: 80053; 85025